=== PATIENT | female | born 1935 ===

== ENCOUNTER 2018-08-13 09:18 | Inpatient (IN) | payer OTHER ==
[~2018-08-13] VITALS: Ht 160 cm; Wt 77.1 kg
--- NOTE | 2018-08-13 09:39 | NUR ---
PTE ALERTA Y ORIENTADA X 3 ESFERAS RECIBIDA EN AMBULANCIA POR DIFICULTAD RESPIRATORIA LA CUAL PTE NIEGA,PTE REFIERE DOLOR DE ESPALDA ENEDELIA DESDE HACE VARIOS VIEYRA,NIEGA DOLOR DE PECHO.PTE RECIBIDA CON CANULA NASAL @ 3 LTS SATURANDO 94%,CANALIZADA EN MANO RT Y BRAZO LT CON .45NSS BAJANDO SIN DIFICULTAD.SE PRESENTA A DR PICHARDO.PTE CON VERONICA.
--- NOTE | 2018-08-13 09:44 | NUR ---
MR ELLY ORIENTA A PACIENTE Y FAMILIAR SOBRE ORDENES MEDICAS. COLECTA MUESTRAS DE LABORATORIO ORDENADAS BAJO MEDIDAS ASEPTICAS. PENDIENTE A RESULTADOS DE LABORATORIO Y XRAYS PARA RE-EVALUACION MEDICA.
--- NOTE | 2018-08-13 15:27 | NUR ---
SE RECIBE PTE ALERTA Y ORIENTADA X3 EN MONICA CON BARANDAS ELEVADAS AL MOMENTO. PTE REFIERE 0 EN ESCALA DE DOLOR AL MOMENTO. PTE SE OBSERVA CON H/L EL CUAL SE ENCUENTRA PATENTE DEV DE EDEMA Y ENROJECIMIENTO, MARTIN BAJANDO A GRAVEDAD EL CUAL FUE COOCADO EN EL CRUCERO. PTE EN ESPERA DE CONSULTA CON MEDICINA INTERNA. PTE SE CONTINUA MONITORIANDO POR CAMBIOS.
[2018-08-17] MEDS ORDERED: AZITHROMYCIN500 MG PO (11:12)
== END 2018-08-17 15:45 | disposition home or self-care (01) | DRG 194 ==
LOC: ER 09:18 → MEDJ 21:33
PROVIDERS: ADMIT Internal Medicine
PROC: 4A033R1 Measurement of Arterial Saturation, Peripheral, Percutaneous Approach (ICD-10-PCS; principal; 2018-08-13)
PROC: 3E0F7GC Introduction of Other Therapeutic Substance into Respiratory Tract, Via Natural or Artificial Opening (ICD-10-PCS; 2018-08-13)
DX: J18.1 Lobar pneumonia, unspecified organism (principal); J90 Pleural effusion, not elsewhere classified; J09.X2 Influenza due to identified novel influenza A virus with other respiratory manifestations; R09.02 Hypoxemia; A08.8 Other specified intestinal infections; D69.49 Other primary thrombocytopenia; K29.60 Other gastritis without bleeding; I10 Essential (primary) hypertension; I25.10 Atherosclerotic heart disease of native coronary artery without angina pectoris; K21.9 Gastro-esophageal reflux disease without esophagitis; M25.512 Pain in left shoulder; Z95.5 Presence of coronary angioplasty implant and graft